=== PATIENT | female | born 1980 | race Caucasian/White ===

== ENCOUNTER 2021-06-01 09:12 | Inpatient (IN) | payer OTHER ==
[2021-06-01] VITALS (17 sets, daily range): BP systolic 105–125; BP diastolic 63–74
[~2021-06-01] VITALS: Ht 154.9 cm; Wt 63.6 kg
[2021-06-01 10:16] LABS: CLARITY,URINE SLIGHTLY CLOUDY (Clear); COLOR,URINE STRAW (Yellow); UA COLLECTION TYPE CLN CATCH MIDSTREAM
[2021-06-01 10:17] LABS: GLUCOSE, URINE NEGATIVE (Neg); KETONES,URINE NEGATIVE (Neg); LEUKOCYTE ESTERASE ,URINE NEGATIVE (Neg); NITRITES, URINE NEGATIVE (Neg); OCCULT BLOOD,URINE SMALL (Neg); PROTEIN,URINE NEGATIVE (Neg); UROBILINOGEN,URINE 0.2 E.U/dL (0.2-1.0)
[2021-06-01 10:18] LABS: URINE HCG NEGATIVE (NEG)
[2021-06-01] MEDS ORDERED: ondansetron/PF 4mg/2ml inj IV ONE (10:45)
[2021-06-01 10:49] LABS: SQUAMOUS EPITHELIAL CELL,UR MANY /LPF (FEW)
[2021-06-01 10:50] LABS: BACTERIA,URINE 2+ /HPF (Neg); RBC,URINE 0-2 /HPF (0-2); WBC,URINE 0-4 /HPF (0-4)
[2021-06-01 11:19] LABS: BASOPHILS % (AUTO) 0.1 % (0-1); EOSINOPHILS # (AUTO) 0.1 X10'3 (0-0.9); EOSINOPHILS % (AUTO) 0.6 % (0-6); HEMATOCRIT 42.6 % (35.0-45.0); LYMPHOCYTES # (AUTO) 1.7 X10'3 (1.1-4.8); LYMPHOCYTES % (AUTO) 11.6 % (21-51); MEAN CORPUSCULAR HEMOGLOBIN 28.4 PG (27.0-31.0); MEAN CORPUSCULAR HGB CONC 32.8 g/dL (33.0-36.5); MEAN CORPUSCULAR VOLUME 86.4 FL (78-98); MEAN PLATELET VOLUME 8.6 FL (7.4-10.4); MONOCYTES # (AUTO) 1.1 X10'3 (0-0.9); MONOCYTES % (AUTO) 7.7 % (2-12); NEUTROPHILS # (AUTO) 11.7 X10'3 (1.8-7.7); PLATELET COUNT 264 X10'3 (140-440); RED BLOOD COUNT 4.93 X10'6 (4.20-5.60); RED CELL DISTRIBUTION WIDTH 13.8 % (11.5-14.5); WHITE BLOOD COUNT 14.6 X10'3 (4.5-11.0)
[2021-06-01 11:28] LABS: HCG SERUM QL NEGATIVE
[2021-06-01 11:32] LABS: ALANINE AMINOTRANSFERASE 20 U/L (12-78); ALBUMIN 4.3 G/DL (3.4-5.0); ALBUMIN/GLOBULIN RATIO 0.9 (1.1-1.5); ALKALINE PHOSPHATASE 92 IU/L (46-116); ANION GAP 10 (8-16); ASPARTATE AMINO TRANSFERASE 19 U/L (10-37); BILIRUBIN,TOTAL 0.6 MG/DL (0.1-1.0); BLOOD UREA NITROGEN 8 MG/DL (7-18); BUN/CREATININE RATIO 13.3 (6.6-38.0); CALCIUM 8.7 MG/DL (8.5-10.1); CHLORIDE 101 MMOL/L (99-107); GLUCOSE 94 MG/DL (70-104); LIPASE < 50 U/L (73-393); SODIUM 139 MMOL/L (135-145); TOTAL CARBON DIOXIDE 27.6 MMOL/L (24-32); TOTAL PROTEIN 8.9 G/DL (6.4-8.2); eGFR > 90 ML/MIN
[2021-06-01 11:34] LABS: POTASSIUM 4.1 MMOL/L (3.5-5.1)
[2021-06-01] MEDS ORDERED: piperacillin/tazo 3.375gm/50ml 50 ML IV ONE (12:20)
[2021-06-01] MEDS ORDERED: BUPIVAcaine/PF 2.5mg/ml (0.25%) 10ml vial ONE (12:28)
[2021-06-01] MEDS ORDERED: potassium Cl 40MEQ/1/2NS 520ml 520 ML IV PRN ×2 (13:10)
[2021-06-01] MEDS ORDERED: acetaminophen 325mg tablet PO PRN ×2 (13:10)
[2021-06-01] MEDS ORDERED: magnesium Cl slow-release 64mg tablet PO PRN (13:10)
[2021-06-01] MEDS: normal saline 1000ml 1,000 ML IV SCH ×3 (13:10→23:01)
[2021-06-01] MEDS ORDERED: mag hydrox/Alum hydrox/simeth 30ml oral suspension PO PRN (13:10)
[2021-06-01] MEDS ORDERED: magnesium 2GM in 50ml NS 50 ML IV PRN (13:10)
[2021-06-01] MEDS ORDERED: magnesium 4gm in 100ml NS 100 ML IV PRN (13:10)
[2021-06-01] MEDS ORDERED: morphine 2 MG/ML inj. syringe IV PRN ×3 (13:10→16:25)
[2021-06-01] MEDS ORDERED: ondansetron/PF 4mg/2ml inj IV PRN ×2 (13:10→16:25)
[2021-06-01] MEDS ORDERED: magnesium hydroxide 30ml (MOM) UD suspension PO PRN (13:10)
[2021-06-01] MEDS ORDERED: potassium Cl 20 mEq SR tablet PO PRN ×2 (13:10)
[2021-06-01 13:25] LABS: PARTIAL THROMBOPLASTIN TIME 28 SECONDS (22-32)
[2021-06-01] MEDS ORDERED: NO HOME MEDS (15:32)
--- NOTE | 2021-06-01 15:39 | NUR ---
Patient in room [facility] 345B. I have received report from AICHA WINKLER FROM ER and had the opportunity to ask questions and assume patient care.
[2021-06-01] MEDS: piperacillin/tazo 3.375gm/50ml 50 ML IV SCH ×2 (16:00→23:04)
[2021-06-01] MEDS ORDERED: glycopyrrolate 0.2mg/ml inj ONE (16:19)
[2021-06-01] MEDS ORDERED: sevoflurane 250ml liquid IH ONE (16:19)
[2021-06-01] MEDS ORDERED: LIDOcaine 1%/PF 5ML 10 MG/ML VIAL ONE (16:19)
[2021-06-01] MEDS ORDERED: dexamethasone sod phosphate 10mg/ml inj ONE (16:19)
[2021-06-01] MEDS ORDERED: propofol 10mg/ml 20ml vial IV ONE (16:19)
[2021-06-01] MEDS ORDERED: rocuronium 10mg/ml inj IV ONE (16:19)
[2021-06-01] MEDS ORDERED: neostigmine methylsulfate 1 MG/ML 10ml vial ONE (16:19)
[2021-06-01] MEDS ORDERED: ondansetron/PF 4mg/2ml inj ONE (16:19)
[2021-06-01] MEDS ORDERED: midazolam 1 mg/ML 2ml injection ONE (16:23)
[2021-06-01] MEDS ORDERED: fentaNYL/PF 50MCG/1 ML 2ML syringe ONE (16:23)
[2021-06-01] MEDS ORDERED: meperidine/PF 25mg/ml syringe IV PRN ×3 (16:25)
[2021-06-01] MEDS ORDERED: ringers solution, lacted 1,000 ML IV SCH (16:25)
[2021-06-01] MEDS ORDERED: proCHLORperazine 10 MG/2 ml inj IV PRN (16:25)
[2021-06-01] MEDS ORDERED: morphine 4 MG/ML inj SYRINge IV PRN (16:25)
--- NOTE | 2021-06-01 17:05 | NUR ---
PT ARRIVED FROM OR VIA BED ACCOMPANIED BY DR. ZIEGLER-REPORT GIVEN, VSS, PT AWAKENS TO VERBAL STIMULI, PT DENIES PAIN, PIV 22G TO LEFT F/A-LR RUNNING, DERMABOND TO LAP SITES X3-CDI, SCDS IN PLACE.
--- NOTE | 2021-06-01 18:20 | NUR ---
Problems reprioritized. Patient report given, questions answered & plan of care reviewed with AICHA CUNHA.
--- NOTE | 2021-06-01 18:21 | NUR ---
Patient in room [facility] 345. I have received report from Jazmine St RN and Rekha art history instructor and had the opportunity to ask questions and assume patient care.
--- NOTE | 2021-06-01 18:25 | NUR ---
PT VSS, PAIN BETTER AFTER DEMEROL GIVEN, TOLERATING ICE CHIPS, DERMABOND SITES X 3-CDI, SCDS IN PLACE 22G PIV TO LEFT A/C-LR RUNNIG AT 100ML/HR, SLEEPY BUT AWAKENS EASILY TO VOICE, REPORT CALLED TO ALPHONSE RN - ALL QUESTIONS ANSWERED, TAKEN WITH ALL BELONGINGS TO RM 345B, HOOKED UP TO MONITORS, BED LOW AND LOCKED, CALL LIGHT IN REACH, PRIMARY RN MADE AWARE OF ARRIVAL TO ROOM.
--- NOTE | 2021-06-01 18:31 | NUR ---
Patient arrived to floor
--- NOTE | 2021-06-01 19:06 | NUR ---
Spoke to Haroon, [place], states vaccinated for visitation. Wanted to know plan for DC. Advised DC depends on progress. Advised to inquire about DC tomorrow. The patient and family do not live in this area, [address]
[2021-06-01] MEDS: K and/or MAG REPLACEMENT MC SCH (20:00)
[2021-06-01] MEDS: heparin, porcine 5000 units/ml vial SQ SCH (20:36)
[2021-06-01] MEDS: docusate sod 100mg capsule PO SCH (20:36)
[2021-06-01] MEDS ORDERED: temazepam 15mg capsule PO PRN (21:00)
[2021-06-01] MEDS: HYDROcodone/acetaminophen 5mg/325mg tablet PO PRN (21:39)
[2021-06-02] MEDS: HYDROcodone/acetaminophen 10/325mg tab PO PRN ×2 (01:42→20:08)
[2021-06-02 01:45] VITALS: BP 102/55
[2021-06-02 05:11] VITALS: BP 94/54
--- NOTE | 2021-06-02 06:17 | NUR ---
Problems reprioritized. Patient report given, questions answered & plan of care reviewed with AICHA St.
[2021-06-02 06:44] LABS: BASOPHILS % (AUTO) 0.1 % (0-1); EOSINOPHILS % (AUTO) 0 % (0-6); HEMATOCRIT 33.5 % (35.0-45.0); HEMOGLOBIN 11.2 g/dl (12.0-16.0); LYMPHOCYTES # (AUTO) 0.7 X10'3 (1.1-4.8); LYMPHOCYTES % (AUTO) 8.7 % (21-51); MEAN CORPUSCULAR HEMOGLOBIN 28.8 PG (27.0-31.0); MEAN CORPUSCULAR HGB CONC 33.5 g/dL (33.0-36.5); MEAN CORPUSCULAR VOLUME 86.1 FL (78-98); MEAN PLATELET VOLUME 8.7 FL (7.4-10.4); MONOCYTES # (AUTO) 0.3 X10'3 (0-0.9); NEUTROPHILS # (AUTO) 7.6 X10'3 (1.8-7.7); NEUTROPHILS % (AUTO) 88.2 % (42-75); PLATELET COUNT 247 X10'3 (140-440); RED BLOOD COUNT 3.89 X10'6 (4.20-5.60); RED CELL DISTRIBUTION WIDTH 13.4 % (11.5-14.5); WHITE BLOOD COUNT 8.6 X10'3 (4.5-11.0)
[2021-06-02 07:00] VITALS: BP_SYST 102; BP_SYST 93; BP_DIAS 57; BP_DIAS 58
--- NOTE | 2021-06-02 07:02 | NUR ---
Patient in room [facility] 345B. I have received report from AICHA CUNHA and had the opportunity to ask questions and assume patient care.
[2021-06-02 07:05] LABS: ALANINE AMINOTRANSFERASE 17 U/L (12-78); ALBUMIN 3.2 G/DL (3.4-5.0); ALBUMIN/GLOBULIN RATIO 0.9 (1.1-1.5); ALKALINE PHOSPHATASE 74 IU/L (46-116); ANION GAP 13 (8-16); ASPARTATE AMINO TRANSFERASE 11 U/L (10-37); BILIRUBIN,TOTAL 0.7 MG/DL (0.1-1.0); BLOOD UREA NITROGEN 7 MG/DL (7-18); BUN/CREATININE RATIO 12.3 (6.6-38.0); CALCIUM 7.8 MG/DL (8.5-10.1); CHLORIDE 105 MMOL/L (99-107); CREATININE 0.57 MG/DL (0.40-0.90); GLUCOSE 102 MG/DL (70-104); MAGNESIUM 2.1 MG/DL (1.5-2.4); POTASSIUM 3.9 MMOL/L (3.5-5.1); SODIUM 140 MMOL/L (135-145); TOTAL CARBON DIOXIDE 22.4 MMOL/L (24-32); TOTAL PROTEIN 6.9 G/DL (6.4-8.2); eGFR > 90 ML/MIN
[2021-06-02] MEDS: K and/or MAG REPLACEMENT MC SCH ×2 (08:00→20:00)
[2021-06-02] MEDS: normal saline 1000ml 1,000 ML IV SCH ×2 (09:10→19:10)
[2021-06-02] MEDS: piperacillin/tazo 3.375gm/50ml 50 ML IV SCH ×2 (09:52→16:04)
[2021-06-02] MEDS: docusate sod 100mg capsule PO SCH ×2 (09:52→20:07)
[2021-06-02] MEDS: heparin, porcine 5000 units/ml vial SQ SCH ×2 (09:53→20:09)
[2021-06-02 11:00] VITALS: BP 89/55
[2021-06-02] MEDS ORDERED: loratadine 10mg tablet PO SCH (13:45)
--- NOTE | 2021-06-02 18:30 | NUR ---
Patient in room [facility] 345. I have received report from MICAELA and had the opportunity to ask questions and assume patient care.
--- NOTE | 2021-06-02 18:33 | NUR ---
Problems reprioritized. Patient report given, questions answered & plan of care reviewed with AICHA EPPS.
[2021-06-02 20:00] VITALS: BP 104/70
[2021-06-02 23:00] VITALS: BP 92/56
[2021-06-03] MEDS: piperacillin/tazo 3.375gm/50ml 50 ML IV SCH ×2 (00:22→08:51)
[2021-06-03] MEDS: normal saline 1000ml 1,000 ML IV SCH (05:16)
[2021-06-03 06:05] LABS: BASOPHILS % (AUTO) 0.6 % (0-1); EOSINOPHILS # (AUTO) 0.1 X10'3 (0-0.9); EOSINOPHILS % (AUTO) 1.4 % (0-6); HEMOGLOBIN 9.5 g/dl (12.0-16.0); LYMPHOCYTES # (AUTO) 2.5 X10'3 (1.1-4.8); LYMPHOCYTES % (AUTO) 45.6 % (21-51); MEAN CORPUSCULAR HEMOGLOBIN 28.8 PG (27.0-31.0); MEAN CORPUSCULAR HGB CONC 32.9 g/dL (33.0-36.5); MEAN CORPUSCULAR VOLUME 87.4 FL (78-98); MEAN PLATELET VOLUME 8.3 FL (7.4-10.4); MONOCYTES # (AUTO) 0.4 X10'3 (0-0.9); MONOCYTES % (AUTO) 7.5 % (2-12); NEUTROPHILS # (AUTO) 2.4 X10'3 (1.8-7.7); NEUTROPHILS % (AUTO) 44.9 % (42-75); PLATELET COUNT 198 X10'3 (140-440); RED BLOOD COUNT 3.32 X10'6 (4.20-5.60); RED CELL DISTRIBUTION WIDTH 13.7 % (11.5-14.5); WHITE BLOOD COUNT 5.4 X10'3 (4.5-11.0)
[2021-06-03 06:19] LABS: ALANINE AMINOTRANSFERASE 16 U/L (12-78); ALBUMIN 2.8 G/DL (3.4-5.0); ALBUMIN/GLOBULIN RATIO 0.9 (1.1-1.5); ALKALINE PHOSPHATASE 57 IU/L (46-116); ANION GAP 9 (8-16); ASPARTATE AMINO TRANSFERASE 11 U/L (10-37); BILIRUBIN,TOTAL 0.2 MG/DL (0.1-1.0); BLOOD UREA NITROGEN 9 MG/DL (7-18); BUN/CREATININE RATIO 13.8 (6.6-38.0); CALCIUM 7.4 MG/DL (8.5-10.1); CHLORIDE 110 MMOL/L (99-107); CREATININE 0.65 MG/DL (0.40-0.90); GLUCOSE 94 MG/DL (70-104); MAGNESIUM 2.1 MG/DL (1.5-2.4); POTASSIUM 3.9 MMOL/L (3.5-5.1); SODIUM 143 MMOL/L (135-145); TOTAL CARBON DIOXIDE 24.2 MMOL/L (24-32); TOTAL PROTEIN 5.9 G/DL (6.4-8.2); eGFR > 90 ML/MIN
[2021-06-03 07:00] VITALS: BP 84/44
[2021-06-03 07:19] VITALS: BP 100/70
[2021-06-03 07:20] VITALS: BP 100/70
[2021-06-03] MEDS: K and/or MAG REPLACEMENT MC SCH (08:00)
[2021-06-03] MEDS: HYDROcodone/acetaminophen 5mg/325mg tablet PO PRN (08:51)
[2021-06-03] MEDS: docusate sod 100mg capsule PO SCH (08:52)
[2021-06-03] MEDS: heparin, porcine 5000 units/ml vial SQ SCH (08:52)
--- NOTE | 2021-06-03 11:14 | NUR ---
Spoke to Dr. Duran on the phone letting him know that Dr. Azar wrote discharge order already. Per Dr. Duran, patient does not need oral antibiotic and that patient do not need to follow up with him.
--- NOTE | 2021-06-03 12:10 | NUR ---
Discharged patient home accompanied by her . Discharge instructions was given by Leydi HOLCOMB while she was covering for my lunch break. Peripheral IV catheter removed. Original, written prescription for [place] was given to patient upon discharge.
== END 2021-06-03 12:10 | disposition home or self-care (01) | DRG 343 ==
LOC: ER 09:13 → ED HOLD 13:14 → SUR 3N 15:41
PROVIDERS: ADMIT Internal Medicine; ATTEND Internal Medicine
PROC: 0DTJ4ZZ Resection of Appendix, Percutaneous Endoscopic Approach (ICD-10-PCS; principal; 2021-06-01 16:19)
DX: K35.30 Acute appendicitis with localized peritonitis, without perforation or gangrene (principal)
CPT/HCPCS: 96365; 96375; 99285; Z7506; 36415; 74176; 80053; 81001; 81025; 83605; 83690; 83735; 84703; 85025; 85610; 85730; 87040; 87081; 87635; 93005; 97116; 97162; A4215; A4618; A7000; C9803; G0378; J1100; J1644; J2175; J2250; J2270; J2405; J2543; J2704; J2710; J3010; J3490; J7030; J7120

== ENCOUNTER 2021-07-02 10:56 | Emergency (ER) | payer OTHER ==
[~2021-07-02] VITALS: Ht 154.9 cm; Wt 61.4 kg
[2021-07-02 11:36] LABS: BASOPHILS % (AUTO) 0.3 % (0-1); EOSINOPHILS # (AUTO) 0.3 X10'3 (0-0.9); EOSINOPHILS % (AUTO) 3.9 % (0-6); HEMATOCRIT 38.8 % (35.0-45.0); HEMOGLOBIN 13.3 g/dl (12.0-16.0); MEAN CORPUSCULAR HGB CONC 34.2 g/dL (33.0-36.5); MEAN CORPUSCULAR VOLUME 84.7 FL (78-98); MEAN PLATELET VOLUME 8.2 FL (7.4-10.4); MONOCYTES # (AUTO) 0.5 X10'3 (0-0.9); MONOCYTES % (AUTO) 7.7 % (2-12); NEUTROPHILS # (AUTO) 4.1 X10'3 (1.8-7.7); NEUTROPHILS % (AUTO) 59.1 % (42-75); PLATELET COUNT 235 X10'3 (140-440); RED BLOOD COUNT 4.58 X10'6 (4.20-5.60); RED CELL DISTRIBUTION WIDTH 13.5 % (11.5-14.5)
[2021-07-02 11:51] LABS: ALANINE AMINOTRANSFERASE 21 U/L (12-78); ALBUMIN 3.9 G/DL (3.4-5.0); ALBUMIN/GLOBULIN RATIO 0.9 (1.1-1.5); ALKALINE PHOSPHATASE 87 IU/L (46-116); ANION GAP 8 (8-16); ASPARTATE AMINO TRANSFERASE 18 U/L (10-37); BILIRUBIN,TOTAL 0.3 MG/DL (0.1-1.0); BLOOD UREA NITROGEN 10 MG/DL (7-18); BUN/CREATININE RATIO 16.1 (6.6-38.0); CALCIUM 8.5 MG/DL (8.5-10.1); CHLORIDE 105 MMOL/L (99-107); CREATININE 0.62 MG/DL (0.40-0.90); GLUCOSE 85 MG/DL (70-104); POTASSIUM 4.5 MMOL/L (3.5-5.1); SODIUM 141 MMOL/L (135-145); TOTAL CARBON DIOXIDE 28.3 MMOL/L (24-32); TOTAL PROTEIN 8.2 G/DL (6.4-8.2); eGFR > 90 ML/MIN
--- NOTE | 2021-07-02 17:13 | NUR ---
Haroon Pyle ([facility]) [phone].
[2021-07-02] MEDS ORDERED: iohexol 300mg/ml 100ml inj. ONE (22:03)
[2021-07-02] MEDS ORDERED: vancomycin/NS 1 GM ADD-VANTAGE 250 ML IV ONE (22:10)
[2021-07-03] MEDS ORDERED: piperacillin/tazo 3.375gm/50ml 50 ML IV SCH
--- NOTE | 2021-07-03 00:08 | NUR ---
PT RECIEVING VANCOMYCIN AND AFTER 20 MIN STATED ITCHY WITH RED PATCHES TO NECK AND BASE OF HEAD. STOPPED MEDICATION AND REPORTED TO DR TERESA WHO GAVE VERBAL ORDER OF 25 MG BENADRYL
[2021-07-03] MEDS ORDERED: diphenhydrAMINE 50 mg/ml inj IV ONE (00:10)
[2021-07-03] MEDS ORDERED: diphenhydrAMINE 50 mg/ml inj ONE (00:12)
[2021-07-03] MEDS ORDERED: CEPH-585 PO (00:49)
[2021-07-03] MEDS ORDERED: HYDR-3965 PO (00:50)
[2021-07-03 01:21] VITALS: BP 121/98
== END 2021-07-03 01:24 | disposition home or self-care (01) ==
LOC: ER 10:57
DX: R10.30 Lower abdominal pain, unspecified (principal); Z90.49 Acquired absence of other specified parts of digestive tract; Z79.2 Long term (current) use of antibiotics; Z79.899 Other long term (current) drug therapy
CPT/HCPCS: 36415; 74177; 80053; 83605; 85025; 85651; 96365; 96366; 96368; 96375; 99285; J1200; J2543; J3370; Q9967